=== PATIENT | male | born 2000 | race Caucasian/White ===

== ENCOUNTER → 2022-09-12 | Outpatient (CLI) | payer BC ==
--- NOTE | 2022-09-12 13:16 | US ---
EXAMINATION TYPE: US scrotum with doppler. Grayscale and color Doppler Duplex imaging performed of t bill scrotum. DATE OF EXAM: 09/12/2022 COMPARISON: NONE CLINICAL HISTORY: Left scrotal palpable mass with tenderness x 5 days. EXAM MEASUREMENTS: TESTICLES: Right Testicle: 3.9 x 2.1 x 2.6 cm Left Testicle: 3.5 x 2.4 x 2.7 cm EPIDIDYMIS HEAD: Right Epididymis: 0.81 cm Left Epididymis: 2.4 cm Doppler performed to assess for testicular vascularity; good bilateral color flow and waveforms are s een. There is no evidence of testicular torsion. Presence of hydroceles: No Presence of varicoceles: No Left epididymal cyst noted in area of palpable mass 2.4 x 1.9 x 3.1cm. Blood flow noted in periphera l epididymal tissue. IMPRESSION: 1. Left epididymal cyst at the level of the palpable abnormality.
== END | disposition home or self-care (01) ==
LOC: RADUSWWP 12:25
PROVIDERS: ATTEND Family Medicine
DX: N50.3 Cyst of epididymis (principal); N50.9 Disorder of male genital organs, unspecified
CPT/HCPCS: 76870; 93975